=== PATIENT | female | born 1945 | race Caucasian/White ===

== ENCOUNTER 2018-01-18 05:20 | Day surgery (SDC) | payer OTHER ==
[~2018-01-18 05:20] MED LIST: LEVAQUIN500 MG PO
== END 2018-01-18 11:10 | disposition home or self-care (01) ==
LOC: AMB-ENDOS 05:20
DX: D12.5 Benign neoplasm of sigmoid colon (principal); K57.32 Diverticulitis of large intestine without perforation or abscess without bleeding; K64.8 Other hemorrhoids

== ENCOUNTER 2024-10-12 10:30 | Inpatient (IN) | payer OTHER ==
[~2024-10-12] VITALS: Ht 58.4 cm; Wt 70.8 kg
[2024-10-12 10:25] VITALS: BP 122/76
[2024-10-12 11:45] LABS: RH POSITIVE
[2024-10-23] MEDS ORDERED: CEFAZOLIN SODIUM 1,000 MG VIAL ONE (08:58)
[2024-10-23] MEDS ORDERED: POVIDONE-IODINE 118 ML BOTT TOP ONE (08:58)
[2024-10-23] MEDS ORDERED: HEMOSTATIC MATRIX 1 KIT KIT TOP ONE (10:34)
[2024-10-23] MEDS ORDERED: MORPHINE SULFATE 2 MG,MORPHINE SULFATE 4 MG IV PRN (11:15)
[2024-10-23] MEDS ORDERED: MORPHINE SULFATE 4 MG/ML VIAL IV PRN (11:15)
[2024-10-23] MEDS ORDERED: ONDANSETRON HCL 2 MG/ML VIAL IV PRN (11:15)
[2024-10-23] MEDS ORDERED: RINGERS SOLUTION,LACTATED 1,000 ML IV SCH (11:15)
[2024-10-23] MEDS ORDERED: MORPHINE SULFATE 4 MG/ML VIAL IV ONE ×3 (11:50→13:20)
[2024-10-23] MEDS ORDERED: CEFAZOLIN SODIUM 1,000 MG VIAL IV SCH (12:00)
[2024-10-23 14:16] LABS: HEMATOCRIT 36.5 % (36.0-45.00); HEMOGLOBIN 12.2 g/dL (12.0-15.00); MEAN CELL VOLUME 88.8 fL (80.00-100.00); MEAN CORPUSCULAR HEMOGLOBIN 29.8 pg (27.00-32.0); MEAN CORPUSCULAR HGB CONC 33.6 g/dl (32.0-36.0); PLATELET COUNT 244 K/uL (150-450); RED BLOOD COUNT 4.11 M/uL (4.00-6.00); RED CELL DISTRIBUTION WIDTH 14.9 % (11.5-14.5)
[2024-10-23 16:26] VITALS: BP 140/61
[2024-10-24 00:29] VITALS: BP 129/70
[2024-10-24] MEDS ORDERED: IBUprofen 800 MG TABLET PO PRN (07:30)
[2024-10-24] MEDS ORDERED: GABAPENTIN 300 MG CAPSULE PO PRN (07:30)
[2024-10-24 08:39] VITALS: BP 135/76
[2024-10-24] MEDS ORDERED: ENOXAPARIN SODIUM 40 MG/0.4 ML SYRINGE SUBCUTANEO SCH (09:00)
[2024-10-24 15:52] VITALS: BP 143/64
[2024-10-25 01:28] VITALS: BP 137/72
[2024-10-25] MEDS ORDERED: GABAPENTIN300 MG PO (06:22)
[2024-10-25] MEDS ORDERED: IBUPROFEN800 MG PO (06:23)
[2024-10-25 08:45] VITALS: BP 135/80
== END 2024-10-25 01:35 | disposition home or self-care (01) | DRG 743 ==
LOC: O/R 10-23 05:11 → OB/GYN 10-23 05:11 → SURH 10-23 08:45 → OB/GYN 10-23 13:12
PROVIDERS: ADMIT Obstetrics & Gynecology Gynecology; ATTEND Obstetrics & Gynecology Gynecology
PROC: 0UT70ZZ Resection of Bilateral Fallopian Tubes, Open Approach (ICD-10-PCS; 2024-10-23)
PROC: 0UT20ZZ Resection of Bilateral Ovaries, Open Approach (ICD-10-PCS; 2024-10-23)
PROC: 0USG0ZZ Reposition Vagina, Open Approach (ICD-10-PCS; 2024-10-23)
PROC: 0UT90ZZ Resection of Uterus, Open Approach (ICD-10-PCS; principal; 2024-10-23 08:45)
DX: D25.1 Intramural leiomyoma of uterus (principal); D27.0 Benign neoplasm of right ovary; N72 Inflammatory disease of cervix uteri